=== PATIENT | female | born 1940 | race Caucasian/White ===

== ENCOUNTER 2018-11-20 07:17 | Observation (INO) | payer MEDICARE, OTHER ==
[2018-11-05 08:53] LABS: BASOPHILS % 0.6 % (0.0-1.0); EOSINOPHILS # (AUTO) 0.4 (0.0-0.4); EOSINOPHILS % 5.3 % (0.0-6.0); HEMATOCRIT 48.4 % (34.2-44.1); HEMOGLOBIN 15.5 g/dL (12.0-16.0); LYMPHOCYTES # (AUTO) 1.1 (1.0-3.2); LYMPHOCYTES % 16.7 % (18.0-39.1); MEAN CORPUSCULAR HEMOGLOBIN 31.1 pg (28-32); MEAN CORPUSCULAR VOLUME 97.2 fL (81-99); MONOCYTES # (AUTO) 0.5 (0.2-0.8); MONOCYTES % 6.8 % (4.4-11.3); NEUTROPHILS # (AUTO) 4.8 (2.1-6.9); NEUTROPHILS % 70.5 % (38.7-80.0); PLATELET COUNT 204 x10e3/uL (140-360); RED BLOOD COUNT 4.98 x10e6/uL (3.6-5.1); RED CELL DISTRIBUTION WIDTH 12.6 % (11.7-14.4)
--- NOTE | 2018-11-05 09:03 | Diagnostic Imaging Report ---
EXAMINATION: PA and lateral views of the chest. COMPARISON: Two-view chest radiograph 02/26/2014 CLINICAL HISTORY: Preoperative study for hysterectomy DISCUSSION: The lungs are hyperinflated with increased AP diameter of the chest. No focal airspace consolidation, pleural effusion, or pneumothorax. Tortuosity and atherosclerotic calcification of the thoracic aorta. Bilateral hilar fullness. No acute osseous abnormality. Degenerative disc changes of the thoracic spine. IMPRESSION: No acute cardiopulmonary abnormality. Hyperinflation of the lungs in keeping with COPD. Increased bilateral hilar fullness which likely represents prominent pulmonary vascular structures in the setting of COPD. Further evaluation with nonemergent CT scan of the chest with contrast is suggested to exclude presence of lymphadenopathy. Signed by: Dr. Clayton Haynes M.D. on 11/05/2018 9:00 AM
[2018-11-05 09:16] LABS: ALANINE AMINOTRANSFERASE 11 IU/L (0-55); ALBUMIN 3.5 g/dL (3.5-5.0); ALBUMIN/GLOBULIN RATIO 1.2 (0.8-2.0); ALKALINE PHOSPHATASE 55 IU/L (40-150); ANION GAP 11.2 mmol/L (8-16); BLOOD UREA NITROGEN 15 mg/dL (7-26); BUN/CREATININE RATIO 18 (6-25); CALCIUM 8.8 mg/dL (8.4-10.2); CARBON DIOXIDE 33 mmol/L (22-29); CHLORIDE 100 mmol/L (98-107); CREATININE, SERUM 0.84 mg/dL (0.57-1.11); EST GLOMERULAR FILTRATION RATE > 60 ML/MIN (60-); GLUCOSE 131 mg/dL (74-118); POTASSIUM 4.2 mmol/L (3.5-5.1); SODIUM 140 mmol/L (136-145)
[~2018-11-20] VITALS: Ht 167.6 cm; Wt 59.4 kg
[~2018-11-20 07:17] MED LIST: ASPIR 8181 MG PO; BREO INH; CAPTOPRIL25 MG PO; COQ-10100 MG PO; METOPROLOL SUCC25 MG PO; OMEGA-31000 MG PO; PRAVASTATIN SOD40 MG PO; VITAMIN C1000 MG PO; VITAMIN D34000 UNIT PO; calcium PO
--- OUTSIDE RECORDS SUMMARY | 2018-11-20 07:19 | XMS REPORT ---
[facility] Address Unknown Phone Unavailable Care Team Providers Care Bunch Maker Name Role Phone BELIA BECKFORD Unavailable Unavailable Problems This patient has no known problems. Allergies, Adverse Reactions, Alerts This patient has no known allergies or adverse reactions. Medications This patient has no known medications. Results Test Description Test Time Test Comments Text Results Atomic Results Result Comments CHEST 2 VIEWS 2018-11-05 08:56:00 [place] [address] Patient Name: SAIMA REECE MR #: [id number] : 1940 Age/Sex: 78/F Req #: [id number] Adm Physician: Ordered by: BELIA BECKFORD MD Report #: [id number] Location: OR Room/Bed: Procedure: [id number] DX/CHEST 2 VIEWS Exam Date: Exam Time: REPORT STATUS: Signed EXAMINATION: PA and lateral views of the chest. COMPARISON: Two-view chest radiograph 02/26/2014 CLINICAL HISTORY: Preoperative study for hysterectomy DISCUSSION: The lungs are hyperinflated with increased AP diameter of the chest. No focal airspace consolidation, pleural effusion, or pneumothorax. Tortuosity and atherosclerotic calcification of the thoracic aorta. Bilateral hilar fullness. No acute osseous abnormality. Degenerative disc changes of the thoracic spine. IMPRESSION: No acute cardiopulmonary abnormality. Hyperinflation of the lungs in keeping with COPD. Increased bilateral hilar fullness which likely represents prominent pulmonary vascular structures in the setting of COPD. Further evaluation with nonemergent CT scan of the chest with contrast is suggested to exclude presence of lymphadenopathy. Signed by: Dr. Yvette Garcia M.D. on 11/05/2018 9:00 AM Dictated By: YVETTE GARCIA MD 9 Transcribed By: JACK on 11/05/18899 COPY TO: BELIA BECKFORD MD
[2018-11-20] MEDS ORDERED: CEFAZOLIN SOD 2 GM/D5W 50ML 50 ML IV ONE (07:48)
[2018-11-20] MEDS ORDERED: ESTROGENS CONJUGATED VAGINAL CR 45 GM TUBE PV ONE (08:34)
[2018-11-20] MEDS ORDERED: BUPIVACAINE 0.25%/EPI 30ML SDV INJ ONE (08:34)
[2018-11-20] MEDS ORDERED: PROMETHAZINE HCL (IM) 25 MG/ML VIAL IV PRN (10:30)
[2018-11-20] MEDS ORDERED: DOCUSATE SODIUM 100 MG CAP PO PRN (10:30)
[2018-11-20] MEDS ORDERED: KETOROLAC TROMETHAMINE 30 MG/ML VIAL IM PRN (10:30)
[2018-11-20] MEDS ORDERED: ONDANSETRON HCL INJ 2MG/ML 2ML 2 MG/ML VIAL IV PRN (10:30)
[2018-11-20] MEDS ORDERED: HYDROCODONE/APAP 10MG-325MG TAB PO PRN (10:30)
[2018-11-20] MEDS ORDERED: ZOLPIDEM TARTRATE 5 MG TAB PO PRN (10:30)
[2018-11-20] MEDS ORDERED: MEPERIDINE HCL INJ 25 MG/ML VIAL IV PRN (10:30)
[2018-11-20] MEDS ORDERED: HYDROMORPHONE 2MG/ML 2 MG/ML ML ONE (10:55)
--- OUTSIDE RECORDS SUMMARY | 2018-11-20 11:42 | XMS REPORT | Continuity of Care Document ---
Author Author [facility] Interface Address Unknown Phone Unavailable Problems Problem Status Onset Date Classification Date Reported Comments Source 414.01 - [facility] ATHCL[facility] N Active 07/09/2012 [facility] Medications Medication Details Route Status Patient Instructions Ordering Provider Order Date Source Allergies, Adverse Reactions, Alerts Substance Category Reaction Severity Reaction type Status Date Reported Comments Source Immunizations Immunization Date Given Site Status Last Updated Comments Source Results Order Name Results Value Reference Range Date Interpretation Comments Source Vital Signs Vital Sign Value Date Comments Source Encounters Location Location Details Encounter Type Encounter Number Reason For Visit Attending Provider ADM Date DC Date Status Source OD [id number] 414.01 - [facility] ATHRSCL N LISA MCKEON 07/09/2012 Active [facility] Procedures Procedure Code Date Perfomer Comments Source
[2018-11-20] MEDS ORDERED: METOCLOPRAMIDE HCL 10 MG/2ML VIAL ONE (11:47)
[2018-11-20] MEDS: LACTATED RINGER'S 1,000 ML IV SCH (18:00)
[2018-11-20] MEDS ORDERED: ONDANSETRON HCL INJ 2MG/ML 2ML 2 MG/ML VIAL ONE (18:19)
[2018-11-20] MEDS ORDERED: SEVOFLURANE INHAL SOLN 250 ML PEN BTL ONE (18:19)
[2018-11-20] MEDS ORDERED: PROPOFOL IV EMULSION 10 MG/ML 20 ML VIAL ONE (18:19)
[2018-11-20] MEDS ORDERED: ROCURONIUM BROMIDE 10 MG/ML 5ML VIAL ONE (18:19)
[2018-11-20] MEDS ORDERED: ACETAMINOPHEN 1000 MG/100 ML IV ONE (18:19)
[2018-11-20] MEDS ORDERED: DEXAMETHASONE SOD PHOS INJ 4 MG/ML VIAL ONE (18:19)
[2018-11-20] MEDS ORDERED: EPHEDRINE SULFATE INJ 50 MG/10 ML SYR ONE (18:19)
[2018-11-20] MEDS ORDERED: KETOROLAC TROMETHAMINE 30 MG/ML VIAL ONE (18:19)
[2018-11-20 18:27] VITALS: BP 135/72
[2018-11-20] MEDS ORDERED: SALBUTAMOL INH (18:52)
[2018-11-20] MEDS ORDERED: MIDAZOLAM HCL 2 MG/2 ML VIAL ONE (19:00)
[2018-11-20] MEDS ORDERED: FENTANYL CITRATE/PF 100MCG/2 ML INJ ONE (19:00)
--- NOTE | 2018-11-20 19:00 | NUR ---
Report and rounds completed, patient in bed with visitor at bedside. Patrick draining to bedside drainage. Call light within reach. Will continue to monitor.
[2018-11-20 19:30] VITALS: BP 129/64
--- NOTE | 2018-11-20 19:42 | NUR ---
Spoke with Dr Andre via phone patient requesting to take home meds captopril 6.25 mg po Q 12 hrs and Metoprolol 50 mg po Q 12 hrs. Order: patient may take own home meds, D/C wen and vaginal packing in am.
[2018-11-20] MEDS: ACETAMINOPHEN 325 MG TAB PO PRN (19:51)
[2018-11-20 20:00] VITALS: BP 129/64
[2018-11-21] VITALS: BP_SYST 129; BP_DIAS 64; BP_DIAS 68
--- NOTE | 2018-11-21 | NUR ---
Called to room by patient. C/O SOB. Donte lung sounds CTA. 02 sat 94% 2L NC. Encourage to cough and take deep breath. IV fluid slowed to 100 ml/hr. Will continue to monitor.
[2018-11-21] MEDS: ACETAMINOPHEN 325 MG TAB PO PRN (01:18)
[2018-11-21] MEDS: LACTATED RINGER'S 1,000 ML IV SCH ×2 (02:19→10:19)
[2018-11-21 04:00] VITALS: BP 138/67
--- NOTE | 2018-11-21 05:07 | Operative Report ---
DATE OF PROCEDURE: 11/20/2018 SURGEON: Mariah Andre MD PREOPERATIVE DIAGNOSES: Pelvic organ prolapse, procidentia. POSTOPERATIVE DIAGNOSIS: Pelvic organ prolapse, procidentia. PROCEDURE: Transvaginal hysterectomy, anterior-posterior repair, sacrospinous colpopexy. COMPLICATIONS: None. ESTIMATED BLOOD LOSS: 100 cc. PROCEDURE IN DETAIL: The patient was taken to the OR. General anesthesia was induced. She was prepped and draped in a sterile fashion, placed in dorsal lithotomy position. Procidentia was noted and thickened vaginal wall. Subvaginal tissue around the cervix was injected with Marcaine with epinephrine 0.25%. Circumferential vaginal skin incision was made with a scalpel around the bladder line. The bladder was dissected off the cervix using curved Martinez scissors and gentle sweeps of bladder of the cervix using the sponge wrapped on the index finger. The pouch of Lux is opened with Metzenbaum scissors and a weighted speculum was advanced. Following this, using the LigaSure, the uterosacral ligaments on each side clamped and cut, and pedicles secured. Following this, uterine vessels on each side were clamped and cut with LigaSure. The fundus was clipped outside the introitus, and with a finger around the fundus, anterior pouch was opened, and two curved Zeppelin clamps were applied on each side of the cornu. Uterus was freed with curved Martinez scissors and the pedicles were secured with transfixion suture of Vicryl 0. Following this, a plain cut gut purse string suture was placed around the bladder. The pubocervical ligaments on each side approximated using Vicryl 0 sutures. The pelvic fascia around the inferior pubic ramus was pierced with index finger, ischial spine was palpated together with sacrospinous ligament and a PDS stitch on the Capio needle cornejo was placed and other end was hitched to the vaginal vault. Following this, vagina was trimmed off using curved Martinez scissors and vagina was closed with interlocking stitches of Vicryl 0. The sacrospinous ligaments on each side of the pelvis were tied to the vaginal vault and the vaginal vault was lifted. Following this, posterior repair was performed with 2 Allis clamps applied on each side of the fourchette at the mucocutaneous junction and vaginal tissue was injected with Marcaine with epi. The skin between the 2 Allis clamps using curved Martinez scissors was excised and the vagina was opened in the midline using Metzenbaum scissors. The two flaps of vagina dissected off underlying muscle using both sharp and blunt dissection. Following this, the levator ani were approximated using Vicryl 0 sutures and excess vaginal skin was trimmed posteriorly using curved Martinez scissors and vagina was closed with interlocking sutures of Vicryl 0 and perineum was approximated using subcu Vicryl 2-0. The patient tolerated the procedure well. Lap, instrument, and needle count was correct x2 at the end of the procedure. Vaginal pack and indwelling Patrick catheter was placed inside the bladder at the end of the procedure. Mariah Andre MD DD/JUAN JOSÉ /[id number]
--- NOTE | 2018-11-21 05:45 | NUR ---
Patrick and vaginal packing removed, due to void. Hat in commode and educated on to call for assistance to bathroom. Pad and mess panties applied. Will continue to monitor. Due to void 1145 to 1345
[2018-11-21 08:00] VITALS: BP 138/67
[2018-11-21 08:12] VITALS: BP 134/60
[2018-11-21 09:46] LABS: BASOPHILS % 0.2 % (0.0-1.0); EOSINOPHILS % 0.4 % (0.0-6.0); HEMATOCRIT 40.4 % (34.2-44.1); HEMOGLOBIN 12.8 g/dL (12.0-16.0); LYMPHOCYTES # (AUTO) 0.9 (1.0-3.2); LYMPHOCYTES % 9.9 % (18.0-39.1); MEAN CORPUSCULAR HEMOGLOBIN 31.7 pg (28-32); MEAN CORPUSCULAR HGB CONC 31.7 g/dL (31-35); MONOCYTES # (AUTO) 0.8 (0.2-0.8); MONOCYTES % 9.2 % (4.4-11.3); NEUTROPHILS # (AUTO) 7.2 (2.1-6.9); NEUTROPHILS % 79.9 % (38.7-80.0); PLATELET COUNT 166 x10e3/uL (140-360); RED BLOOD COUNT 4.04 x10e6/uL (3.6-5.1); RED CELL DISTRIBUTION WIDTH 12.6 % (11.7-14.4)
--- NOTE | 2018-11-21 10:00 | NUR ---
Patient voided x2 without difficulty.
[2018-11-21] MEDS ORDERED: ULTRAM50 MG PO (11:30)
[2018-11-21 11:48] VITALS: BP 119/58
--- NOTE | 2018-11-21 13:00 | NUR ---
Patient discharged home with written instruction and prescription. Patient verbalized understanding. Son to take home.
== END 2018-11-21 13:03 | disposition home or self-care (01) ==
LOC: OR 07:17 → PACU V 10:22 → IMCU 17:37
PROVIDERS: ADMIT Obstetrics & Gynecology; ATTEND Obstetrics & Gynecology
DX: N81.3 Complete uterovaginal prolapse (principal); R32 Unspecified urinary incontinence; Z01.810 Encounter for preprocedural cardiovascular examination; Z01.812 Encounter for preprocedural laboratory examination; Z01.811 Encounter for preprocedural respiratory examination; Z91.02 Food additives allergy status; Z91.048 Other nonmedicinal substance allergy status; J44.9 Chronic obstructive pulmonary disease, unspecified; I25.10 Atherosclerotic heart disease of native coronary artery without angina pectoris; I10 Essential (primary) hypertension; I25.2 Old myocardial infarction; N95.2 Postmenopausal atrophic vaginitis
CPT/HCPCS: 36415 ×2; 57265; 58260; 71046; 80053; 85025 ×2; 86850 ×2; 86900 ×2; 88307; 93005; G0378 ×2; J0131; J0690; J1100; J1170; J1885; J2250; J2405; J2704; J2765; J7121

== ENCOUNTER 2022-03-17 12:21 | Emergency (ER) | payer MEDICARE ==
[~2022-03-17] VITALS: Ht 167.6 cm; Wt 59.4 kg
[~2022-03-17 12:21] MED LIST changes: +SALBUTAMOL INH; +ULTRAM50 MG PO
[2022-03-17] MEDS ORDERED: SODIUM CHLORIDE FLUSH 10 ML SYR IV PRN (13:00)
[2022-03-17 13:27] LABS: BASOPHILS % 0.6 % (0.0-1.0); EOSINOPHILS # (AUTO) 0.1 (0.0-0.4); EOSINOPHILS % 1.8 % (0.0-6.0); HEMATOCRIT 48.2 % (34.2-44.1); HEMOGLOBIN 15.5 g/dL (12.0-16.0); LYMPHOCYTES # (AUTO) 1.2 (1.0-3.2); LYMPHOCYTES % 23.4 % (18.0-39.1); MEAN CORPUSCULAR HEMOGLOBIN 31.2 pg (28-32); MEAN CORPUSCULAR HGB CONC 32.2 g/dL (31-35); MONOCYTES # (AUTO) 0.5 (0.2-0.8); MONOCYTES % 9.1 % (4.4-11.3); NEUTROPHILS # (AUTO) 3.3 (2.1-6.9); NEUTROPHILS % 64.7 % (38.7-80.0); PLATELET COUNT 176 x10e3/uL (140-360); RED BLOOD COUNT 4.97 x10e6/uL (3.6-5.1); RED CELL DISTRIBUTION WIDTH 12.5 % (11.7-14.4)
[2022-03-17 13:35] LABS: INR 0.91; PROTHROMBIN TIME 13.1 seconds (11.9-14.5)
[2022-03-17 13:36] LABS: PARTIAL THROMBOPLASTIN TIME 24.7 seconds (23.8-35.5)
[2022-03-17 13:42] LABS: ALBUMIN 3.6 g/dL (3.5-5.0); ALBUMIN/GLOBULIN RATIO 1.1 (0.8-2.0); ANION GAP 12.2 mmol/L (8-16); CALCIUM 8.4 mg/dL (8.4-10.2); CREATININE, SERUM 0.82 mg/dL (0.57-1.11); POTASSIUM 4.2 mmol/L (3.5-5.1)
[2022-03-17 15:36] LABS: CLARITY,URINE CLEAR (CLEAR); COLOR,URINE YELLOW (YELLOW); KETONES,URINE TRACE (NEGATIVE); LEUKOCYTE ESTERASE ,URINE NEGATIVE (NEGATIVE); NITRITE,URINE NEGATIVE (NEGATIVE); PROTEIN,URINE DIPSTICK NEGATIVE (NEGATIVE)
[2022-03-17 15:37] LABS: URINE UROBILINOGEN 0.2 mg/dL (0.2 - 1)
[2022-03-17 15:41] LABS: AMPHETAMINES SCREEN,URINE NEGATIVE (NEGATIVE); BENZODIAZEPINES SCREEN,URINE NEGATIVE (NEGATIVE); PHENCYCLIDINE SCREEN,URINE NEGATIVE (NEGATIVE)
[2022-03-17 15:52] LABS: BACTERIA,URINE MODERATE /HPF; EPITHELIAL CELLS,URINE MANY /LPF
[2022-03-17] MEDS ORDERED: ACETAMINOPHEN 325 MG TAB PO ONE (17:15)
== END 2022-03-17 17:21 | disposition home or self-care (01) ==
LOC: ER 12:37
DX: R51.9 Headache, unspecified (principal); R53.1 Weakness; I10 Essential (primary) hypertension; J44.9 Chronic obstructive pulmonary disease, unspecified; I25.2 Old myocardial infarction
CPT/HCPCS: 36415; 70450; 71045; 80053; 80307; 81001; 82948; 84484; 85025; 85610; 85730; 99284

== ENCOUNTER 2024-12-19 14:16 | Inpatient (IN) | payer MEDICARE ==
[~2024-12-19] VITALS: Ht 160 cm; Wt 50.4 kg
[2024-12-19 16:42] LABS: BASOPHILS % 0.2 % (0.0-1.0); EOSINOPHILS % 0.2 % (0.0-6.0); HEMATOCRIT 48.1 % (34.2-44.1); HEMOGLOBIN 14.9 g/dL (12.0-16.0); LYMPHOCYTES # (AUTO) 0.7 (1.0-3.2); LYMPHOCYTES % 5.6 % (18.0-39.1); MEAN CORPUSCULAR HEMOGLOBIN 30.4 pg (28-32); MEAN CORPUSCULAR VOLUME 98.2 fL (81-99); MONOCYTES # (AUTO) 0.9 (0.2-0.8); MONOCYTES % 7.1 % (4.4-11.3); NEUTROPHILS # (AUTO) 10.7 (2.1-6.9); NEUTROPHILS % 86.4 % (38.7-80.0); PLATELET COUNT 221 x10e3/uL (140-360); RED CELL DISTRIBUTION WIDTH 13.8 % (11.7-14.4); WHITE BLOOD COUNT 12.41 x10e3/uL (4.8-10.8)
[2024-12-19 16:47] LABS: INR 1.24; PROTHROMBIN TIME 16.3 seconds (11.9-14.5)
[2024-12-19 16:48] LABS: PARTIAL THROMBOPLASTIN TIME 31.5 seconds (23.8-35.5)
[2024-12-19] MEDS: ALBUTEROL/IPRATROPIUM 3 ML NEB NEB ONE (16:50)
[2024-12-19 17:03] LABS: CORONAVIRUS COVID-19 AG NEGATIVE (NEGATIVE); INFLUENZA A AG NEGATIVE (NEGATIVE); INFLUENZA B AG NEGATIVE (NEGATIVE)
[2024-12-19] MEDS: CEFEPIME 2 GM in SODIUM CHLORIDE 0.9% 100 ML IV ONE (17:52)
[2024-12-19] MEDS: METHYLPREDNISOLONE SOD SUCC 125 MG/2ML VIAL IV ONE (17:53)
[2024-12-19] MEDS: SODIUM CHLORIDE 0.9% 500ML 500 ML IV ONE (17:54)
[2024-12-19] MEDS: SODIUM CHLORIDE 0.9% 1000ML 1,000 ML IV SCH (17:55)
[2024-12-19 18:05] LABS: ALBUMIN 3.3 g/dL (3.5-5.0); ALBUMIN/GLOBULIN RATIO 1.1 (0.8-2.0); ANION GAP 15.3 mmol/L (8-16); BILIRUBIN,TOTAL 0.5 mg/dL (0.2-1.2); CALCIUM 8.6 mg/dL (8.4-10.2); CREATININE, SERUM 0.81 mg/dL (0.57-1.11); POTASSIUM 4.3 mmol/L (3.5-5.1); TOTAL PROTEIN 6.2 g/dL (6.5-8.1)
[2024-12-19 18:11] LABS: TROPONIN I 0.079 ng/mL (0-0.300)
[2024-12-19 18:25] LABS: ABG PH 7.25 (7.35-7.45)
[2024-12-19 18:28] LABS: ABG HCO3 31 mmol/L (22-26); ABG PCO2 70 mmHg (35-45); ABG PO2 108 mmHg (80-105); ABG TCO2 33
[2024-12-19] MEDS ORDERED: ONDANSETRON HCL INJ 2MG/ML 2ML 2 MG/ML VIAL IV PRN (20:00)
[2024-12-19] MEDS: MUPIROCIN 2% OINT 22 GM TUBE TOP SCH (20:00)
[2024-12-19] MEDS ORDERED: SODIUM CHLORIDE FLUSH 10 ML SYR INJ PRN (20:00)
[2024-12-19 21:30] VITALS: PULSE 94; RESP 20; TEMP 98.7
[2024-12-19 21:35] VITALS: PULSE 84; RESP 18; O2SAT 97
[2024-12-19 22:00] VITALS: BP 125/68; PULSE 97; RESP 16; TEMP 98; O2SAT 98
[2024-12-19] MEDS: FUROSEMIDE INJ 10 MG/ML 4 ML VIAL IV SCH (22:03)
[2024-12-19] MEDS: PRAVASTATIN 20 MG TAB PO SCH (22:03)
[2024-12-19 22:30] VITALS: BP 125/68; PULSE 92; RESP 19; TEMP 98
[2024-12-19 23:18] LABS: TROPONIN I 0.048 ng/mL (0-0.300)
[2024-12-20] VITALS (18 sets, daily range): BP systolic 92–138; BP diastolic 52–86; PULSE 84–121; RESP 15–30; TEMP 98–98.4; O2SAT 84–100
[2024-12-20 00:26] LABS: CLARITY,URINE CLEAR (CLEAR); COLOR,URINE YELLOW (YELLOW)
[2024-12-20 00:27] LABS: BILIRUBIN,URINE NEGATIVE (NEGATIVE); GLUCOSE, URINE NEGATIVE (NEGATIVE); KETONES,URINE NEGATIVE (NEGATIVE); LEUKOCYTE ESTERASE ,URINE NEGATIVE (NEGATIVE); NITRITE,URINE NEGATIVE (NEGATIVE); PH,URINE 5.5 (5 - 7); PROTEIN,URINE DIPSTICK TRACE (NEGATIVE); URINE UROBILINOGEN 0.2 mg/dL (0.2 - 1)
[2024-12-20 01:09] LABS: BACTERIA,URINE MANY /HPF; EPITHELIAL CELLS,URINE FEW /LPF; RBC,URINE 0-5 /HPF (0-5)
[2024-12-20 01:10] LABS: RENAL EPITHELIAL CELLS,URINE FEW
[2024-12-20 06:22] LABS: BASOPHILS % 0.4 % (0.0-1.0); EOSINOPHILS # (AUTO) 0.1 (0.0-0.4); HEMATOCRIT 45.9 % (34.2-44.1); HEMOGLOBIN 13.8 g/dL (12.0-16.0); LYMPHOCYTES # (AUTO) 0.6 (1.0-3.2); LYMPHOCYTES % 7.4 % (18.0-39.1); MEAN CORPUSCULAR HEMOGLOBIN 30.3 pg (28-32); MEAN CORPUSCULAR HGB CONC 30.1 g/dL (31-35); MEAN CORPUSCULAR VOLUME 100.7 fL (81-99); MONOCYTES # (AUTO) 0.8 (0.2-0.8); MONOCYTES % 9.7 % (4.4-11.3); NEUTROPHILS # (AUTO) 6.3 (2.1-6.9); NEUTROPHILS % 81.2 % (38.7-80.0); PLATELET COUNT 202 x10e3/uL (140-360); RED BLOOD COUNT 4.56 x10e6/uL (3.6-5.1); RED CELL DISTRIBUTION WIDTH 13.7 % (11.7-14.4); WHITE BLOOD COUNT 7.81 x10e3/uL (4.8-10.8)
[2024-12-20 06:53] LABS: ALBUMIN/GLOBULIN RATIO 1.1 (0.8-2.0); ANION GAP 16.4 mmol/L (8-16); BILIRUBIN,TOTAL 0.4 mg/dL (0.2-1.2); CALCIUM 8.4 mg/dL (8.4-10.2); CREATININE, SERUM 0.77 mg/dL (0.57-1.11); POTASSIUM 4.4 mmol/L (3.5-5.1); TOTAL PROTEIN 5.7 g/dL (6.5-8.1)
[2024-12-20 07:15] LABS: TROPONIN I 0.045 ng/mL (0-0.300)
[2024-12-20 07:49] LABS: ABG HCO3 39 mmol/L (22-26); ABG PCO2 74 mmHg (35-45); ABG PH 7.33 (7.35-7.45); ABG PO2 143 mmHg (80-105); ABG TCO2 41
[2024-12-20] MEDS: ALBUTEROL/IPRATROPIUM 3 ML NEB NEB PRN (07:53)
[2024-12-20] MEDS: METHYLPREDNISOLONE SOD SUCC 40 MG/ML VIAL 1ML IV SCH (08:38)
[2024-12-20] MEDS: METOPROLOL TARTRATE 25 MG TAB PO SCH (08:39)
[2024-12-20] MEDS: RIVAROXABAN 10 MG TABLET PO SCH (09:00)
[2024-12-20] MEDS ORDERED: METHYLPREDNISOLONE SOD SUCC 125 MG/2ML VIAL IV SCH (09:00)
[2024-12-20] MEDS: ELIQUIS 2.5 MG PO SCH (17:30)
[2024-12-20] MEDS ORDERED: ACETAMINOPHEN 325 MG TAB PO PRN (21:30)
[2024-12-20] MEDS ORDERED: DEXTROSE 50% SYRINGE 50 ML IV PRN (21:30)
[2024-12-20] MEDS: INSULIN LISPRO 100 UNIT/1 ML 3ML VIAL SQ SCH (21:45)
[2024-12-21] VITALS (13 sets, daily range): BP systolic 101–128; BP diastolic 54–80; PULSE 75–98; RESP 14–28; TEMP 97.3–98; O2SAT 93–100
[2024-12-21 07:20] LABS: BASOPHILS % 0.2 % (0.0-1.0); EOSINOPHILS # (AUTO) 0.1 (0.0-0.4); EOSINOPHILS % 0.7 % (0.0-6.0); HEMATOCRIT 46.3 % (34.2-44.1); HEMOGLOBIN 13.7 g/dL (12.0-16.0); LYMPHOCYTES # (AUTO) 0.9 (1.0-3.2); LYMPHOCYTES % 11.3 % (18.0-39.1); MEAN CORPUSCULAR HGB CONC 29.6 g/dL (31-35); MEAN CORPUSCULAR VOLUME 101.5 fL (81-99); MONOCYTES % 12.6 % (4.4-11.3); NEUTROPHILS # (AUTO) 6.1 (2.1-6.9); NEUTROPHILS % 74.6 % (38.7-80.0); PLATELET COUNT 208 x10e3/uL (140-360); RED BLOOD COUNT 4.56 x10e6/uL (3.6-5.1); RED CELL DISTRIBUTION WIDTH 13.3 % (11.7-14.4); WHITE BLOOD COUNT 8.15 x10e3/uL (4.8-10.8)
[2024-12-21 07:34] LABS: ALBUMIN 3.1 g/dL (3.5-5.0); ALBUMIN/GLOBULIN RATIO 1.3 (0.8-2.0); ANION GAP 13.4 mmol/L (8-16); BILIRUBIN,TOTAL 0.3 mg/dL (0.2-1.2); CALCIUM 8.4 mg/dL (8.4-10.2); CREATININE, SERUM 0.76 mg/dL (0.57-1.11); POTASSIUM 4.4 mmol/L (3.5-5.1); TOTAL PROTEIN 5.5 g/dL (6.5-8.1)
[2024-12-21] MEDS: PANTOPRAZOLE SOD 40 MG TABEC PO SCH (08:05)
[2024-12-21] MEDS: DOCUSATE SODIUM 100 MG CAP PO SCH (08:07)
[2024-12-21] MEDS: RIVAROXABAN 10 MG TABLET PO ONE (08:08)
[2024-12-21] MEDS: SENNOSIDES 8.6 MG TAB PO SCH (08:08)
[2024-12-21] MEDS ORDERED: RIVAROXABAN 10 MG TABLET PO SCH (09:00)
[2024-12-21] MEDS: RIVAROXABAN 15 MG TABLET PO ONE (09:38)
[2024-12-21] MEDS ORDERED: HEPARIN SOD/DEXTROSE 5% 25000 UNIT/250 ML BAG IV SCH (11:30)
[2024-12-21 12:33] LABS: INR 2.58; PROTHROMBIN TIME 28.9 seconds (11.9-14.5)
[2024-12-21] MEDS: HEPARIN 25,000 UNIT/D5W 250ML 250 ML IV SCH (13:27)
[2024-12-21] MEDS ORDERED: ENOXAPARIN SOD INJ 40 MG/0.4 ML SYR SC SCH (17:00)
[2024-12-21 19:22] LABS: TROPONIN I 0.012 ng/mL (0-0.300)
[2024-12-21] MEDS ORDERED: XARELTO10 MG PO (22:01)
[2024-12-21] MEDS ORDERED: WIXELA 250-501 EACH INH (22:01)
[2024-12-21] MEDS: RIVAROXABAN 15 MG TABLET PO SCH (22:07)
[2024-12-22] VITALS (12 sets, daily range): BP systolic 109–137; BP diastolic 61–69; PULSE 68–92; RESP 16–20; TEMP 97.5–98.5; O2SAT 94–99
[2024-12-22] MEDS ORDERED: RIVAROXABAN 20 MG TABLET PO SCH (09:00)
[2024-12-22 09:23] LABS: BASOPHILS % 0.1 % (0.0-1.0); EOSINOPHILS % 0.5 % (0.0-6.0); HEMATOCRIT 43.8 % (34.2-44.1); HEMOGLOBIN 13.3 g/dL (12.0-16.0); LYMPHOCYTES # (AUTO) 0.8 (1.0-3.2); LYMPHOCYTES % 9.3 % (18.0-39.1); MEAN CORPUSCULAR HEMOGLOBIN 30.1 pg (28-32); MEAN CORPUSCULAR HGB CONC 30.4 g/dL (31-35); MEAN CORPUSCULAR VOLUME 99.1 fL (81-99); MONOCYTES # (AUTO) 0.8 (0.2-0.8); MONOCYTES % 9.5 % (4.4-11.3); NEUTROPHILS % 80.1 % (38.7-80.0); PLATELET COUNT 221 x10e3/uL (140-360); RED BLOOD COUNT 4.42 x10e6/uL (3.6-5.1); RED CELL DISTRIBUTION WIDTH 13.2 % (11.7-14.4); WHITE BLOOD COUNT 8.75 x10e3/uL (4.8-10.8)
[2024-12-22] MEDS: POLYETHYLENE GLYCOL 3350 17 GM PACK PO PRN (09:32)
[2024-12-22 09:50] LABS: ANION GAP 13.8 mmol/L (8-16); CALCIUM 8.7 mg/dL (8.4-10.2); CREATININE, SERUM 0.71 mg/dL (0.57-1.11); POTASSIUM 3.8 mmol/L (3.5-5.1)
[2024-12-22 11:32] LABS: ABG PH 7.33 (7.35-7.45)
[2024-12-22 11:32] LABS: ABG PH 7.25 (7.35-7.45)
[2024-12-22] MEDS: BISACODYL 10 MG SUPP PR PRN (21:51)
[2024-12-23] VITALS (9 sets, daily range): BP systolic 117–133; BP diastolic 59–74; PULSE 58–94; RESP 17–20; TEMP 97.6–99.2; O2SAT 92–99
[2024-12-23 08:12] LABS: BASOPHILS % 0.1 % (0.0-1.0); EOSINOPHILS # (AUTO) 0.1 (0.0-0.4); EOSINOPHILS % 1.1 % (0.0-6.0); HEMATOCRIT 46.1 % (34.2-44.1); HEMOGLOBIN 13.9 g/dL (12.0-16.0); LYMPHOCYTES # (AUTO) 0.9 (1.0-3.2); LYMPHOCYTES % 10.3 % (18.0-39.1); MEAN CORPUSCULAR HEMOGLOBIN 30.3 pg (28-32); MEAN CORPUSCULAR HGB CONC 30.2 g/dL (31-35); MEAN CORPUSCULAR VOLUME 100.4 fL (81-99); MONOCYTES # (AUTO) 0.8 (0.2-0.8); MONOCYTES % 8.3 % (4.4-11.3); NEUTROPHILS # (AUTO) 7.3 (2.1-6.9); NEUTROPHILS % 79.8 % (38.7-80.0); PLATELET COUNT 224 x10e3/uL (140-360); RED BLOOD COUNT 4.59 x10e6/uL (3.6-5.1); WHITE BLOOD COUNT 9.11 x10e3/uL (4.8-10.8)
[2024-12-23 08:38] LABS: ANION GAP 13.6 mmol/L (8-16); CALCIUM 8.6 mg/dL (8.4-10.2); CREATININE, SERUM 0.66 mg/dL (0.57-1.11); POTASSIUM 4.6 mmol/L (3.5-5.1)
[2024-12-23] MEDS ORDERED: ONDANSETRON HCL 4 MG ORAL DISINTEGRATING TAB PO PRN (13:45)
[2024-12-23] MEDS: AZITHROMYCIN 250 MG TAB PO SCH (16:48)
[2024-12-24] VITALS (8 sets, daily range): BP systolic 115–139; BP diastolic 63–67; PULSE 67–83; RESP 14–20; TEMP 97.8–98.3; O2SAT 93–100
[2024-12-24 06:36] LABS: BASOPHILS % 0.2 % (0.0-1.0); EOSINOPHILS # (AUTO) 0.2 (0.0-0.4); EOSINOPHILS % 1.6 % (0.0-6.0); HEMATOCRIT 45.1 % (34.2-44.1); HEMOGLOBIN 13.6 g/dL (12.0-16.0); LYMPHOCYTES # (AUTO) 0.7 (1.0-3.2); LYMPHOCYTES % 7.2 % (18.0-39.1); MEAN CORPUSCULAR HGB CONC 30.2 g/dL (31-35); MEAN CORPUSCULAR VOLUME 99.6 fL (81-99); MONOCYTES # (AUTO) 0.7 (0.2-0.8); MONOCYTES % 7.3 % (4.4-11.3); NEUTROPHILS % 83.1 % (38.7-80.0); PLATELET COUNT 226 x10e3/uL (140-360); RED BLOOD COUNT 4.53 x10e6/uL (3.6-5.1); RED CELL DISTRIBUTION WIDTH 12.9 % (11.7-14.4); WHITE BLOOD COUNT 9.67 x10e3/uL (4.8-10.8)
[2024-12-24 07:02] LABS: ANION GAP 13.4 mmol/L (8-16); CALCIUM 8.5 mg/dL (8.4-10.2); CREATININE, SERUM 0.59 mg/dL (0.57-1.11); POTASSIUM 4.4 mmol/L (3.5-5.1)
[2024-12-24] MEDS ORDERED: XARELTO10 MG PO (09:44)
[2024-12-24] MEDS ORDERED: PREDNISONE20 MG PO (09:44)
[2024-12-24] MEDS ORDERED: AMOX TR-K CLV1 EAC2 PO (09:44)
[2024-12-25] VITALS: BP 134/62; PULSE 97; RESP 18; TEMP 98.7; O2SAT 98
== END 2024-12-24 14:19 | disposition home or self-care (01) | DRG 175 ==
LOC: ER 16:13 → ERHOLD 20:03 → ICU 21:44 → MED/SURG3 12-21 17:20
PROVIDERS: ADMIT Internal Medicine; ATTEND Internal Medicine
PROC: 4A133R1 Monitoring of Arterial Saturation, Peripheral, Percutaneous Approach (ICD-10-PCS; principal; 2024-12-19)
PROC: 5A09457 Assistance with Respiratory Ventilation, 24-96 Consecutive Hours, Continuous Positive Airway Pressure (ICD-10-PCS; 2024-12-19)
DX: I26.99 Other pulmonary embolism without acute cor pulmonale (principal); J96.21 Acute and chronic respiratory failure with hypoxia; J96.22 Acute and chronic respiratory failure with hypercapnia; J44.1 Chronic obstructive pulmonary disease with (acute) exacerbation; J44.0 Chronic obstructive pulmonary disease with (acute) lower respiratory infection; I11.0 Hypertensive heart disease with heart failure; I50.32 Chronic diastolic (congestive) heart failure; Z99.81 Dependence on supplemental oxygen; E11.51 Type 2 diabetes mellitus with diabetic peripheral angiopathy without gangrene; I48.0 Paroxysmal atrial fibrillation; I25.10 Atherosclerotic heart disease of native coronary artery without angina pectoris; I35.8 Other nonrheumatic aortic valve disorders; E78.2 Mixed hyperlipidemia; J43.9 Emphysema, unspecified; Z11.52 Encounter for screening for COVID-19; Z79.01 Long term (current) use of anticoagulants; Z95.820 Peripheral vascular angioplasty status with implants and grafts; Z98.61 Coronary angioplasty status; I25.2 Old myocardial infarction; Z90.710 Acquired absence of both cervix and uterus; Z91.018 Allergy to other foods; Z87.891 Personal history of nicotine dependence
CPT/HCPCS: 36415; 36600; 71045; 71260; 80048; 80053; 81001; 82550; 82805; 82948; 83605; 83735; 83880; 84484; 85025; 85610; 85730; 87040; 87086; 93005; 93306; 93970; 94640; 94660; 94799; 96372; 99252; 99285; J0692; J0696; J1938; J2470; J2919; J7040; J7050

== ENCOUNTER → 2025-02-12 | Outpatient (REF) | payer MEDICARE ==
[~2025-02-12] MED LIST changes: +AMOX TR-K CLV1 EAC2 PO; +IOPAMIDOL 370 MG/ML 100 ML INFUS..BTL INJ ONE; +PREDNISONE20 MG PO; +WIXELA 250-501 EACH INH; +XARELTO10 MG PO
[2025-02-12 16:56] LABS: EST GLOMERULAR FILTRATION RATE 74.0 ML/MIN (>=60)
== END ==
LOC: CT 15:57
PROVIDERS: ATTEND Internal Medicine Critical Care Medicine
DX: I26.99 Other pulmonary embolism without acute cor pulmonale (principal); Z79.01 Long term (current) use of anticoagulants
CPT/HCPCS: 36415; 71260; 82565; 84520; Q9967

== ENCOUNTER → 2025-06-02 | Outpatient (REF) | payer MEDICARE ==
[2025-06-02 12:47] LABS: EST GLOMERULAR FILTRATION RATE 74.0 ML/MIN (>=60)
== END ==
LOC: CT 11:40
PROVIDERS: ATTEND Internal Medicine
DX: I26.99 Other pulmonary embolism without acute cor pulmonale (principal)
CPT/HCPCS: 36415; 71260; 82565; 84520; Q9967